=== PATIENT | male | born 1960 | race Caucasian/White ===

== ENCOUNTER 2018-01-09 00:57 | Observation (INO) | payer OTHER ==
[~2018-01-09] VITALS: Ht 188 cm; Wt 162.2 kg
[2018-01-09 01:24] LABS: BASOPHILS ABSOLUTE AUTO 0.01 K/mm3 (0.00-0.23); BASOPHILS PERCENT AUTO 0 % (0-2); EOSINOPHILS ABSOLUTE AUTO 0.17 K/mm3 (0.00-0.68); EOSINOPHILS PERCENT AUTO 2 % (0-6); Hematocrit 41.4 % (37.0-53.0); Hemoglobin 13.5 g/dL (13.5-17.5); IMMATURE GRAN ABSOLUTE AUTO 0.02 K/mm3 (0.00-0.10); IMMATURE GRAN PERCENT AUTO 0 % (0-1); LYMPHOCYTES ABSOLUTE AUTO 2.74 K/mm3 (0.84-5.20); LYMPHOCYTES PERCENT AUTO 33 % (21-46); MONOCYTES ABSOLUTE AUTO 0.48 K/mm3 (0.16-1.47); MONOCYTES PERCENT AUTO 6 % (4-13); Mean Corpuscular HGB 28.5 pg (26.0-34.0); Mean Corpuscular HGB Conc 32.6 g/dL (31.5-36.5); Mean Corpuscular Volume 87 fL (80-100); Mean Platelet Volume 9.5 fL (9.1-12.4); NEUTROPHILS PERCENT AUTO 59 % (41-73); Platelet Count 295 K/mm3 (150-400); RDW Coefficient Variation 14.3 % (11.7-14.2); RDW Standard Deviation 45.7 fL (35.1-46.3); Red Blood Cell Count 4.74 M/mm3 (4.30-5.90); White Blood Cell Count 8.22 K/mm3 (4.00-11.30)
[2018-01-09 01:44] LABS: Alanine Aminotransfer (ALT/SGP 33 U/L (12-78); Albumin, Blood 3.3 g/dL (3.4-5.0); Albumin/Globulin Ratio 0.8 (0.8-1.8); Alk Phos 71 U/L (50-136); Anion Gap 7 mmol/L (6-16); Aspartate Aminotrans (AST/SGOT 17 U/L (12-37); Bilirubin, Total 0.3 mg/dL (0.1-1.0); Blood Urea Nitrogen 23 mg/dL (8-24); Bun/Creatinine Ratio 21.9 (12.0-20.0); CO2, Blood 29 mmol/L (21-32); Calcium, Blood 8.7 mg/dL (8.5-10.1); Chloride, Blood 100 mmol/L (98-108); Creatinine, Blood 1.05 mg/dL (0.60-1.20); Globulin, Blood 4.3 g/dL (2.2-4.0); Glomerular Filtration Rate >60 (60-); Glucose, Blood 336 mg/dL (70-99); Sodium, Blood 136 mmol/L (136-145); Total Protein, Blood 7.6 g/dL (6.4-8.2); Troponin I <0.015 ng/mL (0.000-0.040)
[2018-01-09] MEDS ORDERED: AMLO10 PO (01:56)
[2018-01-09] MEDS ORDERED: SERT100 PO (01:56)
[2018-01-09] MEDS ORDERED: TRIA50 PO (01:56)
[2018-01-09] MEDS ORDERED: GLIP10 PO (01:57)
[2018-01-09] MEDS ORDERED: VALS80 PO (01:57)
[2018-01-09] MEDS ORDERED: METF500 PO (01:58)
[2018-01-09 10:17] LABS: CPK Creatine Kinase 107 U/L (39-308); Troponin I <0.015 ng/mL (0.000-0.040)
[2018-01-09 17:32] LABS: BASOPHILS ABSOLUTE AUTO 0.02 K/mm3 (0.00-0.23); BASOPHILS PERCENT AUTO 0 % (0-2); EOSINOPHILS ABSOLUTE AUTO 0.18 K/mm3 (0.00-0.68); EOSINOPHILS PERCENT AUTO 2 % (0-6); Hematocrit 44.3 % (37.0-53.0); Hemoglobin 14.6 g/dL (13.5-17.5); IMMATURE GRAN ABSOLUTE AUTO 0.01 K/mm3 (0.00-0.10); IMMATURE GRAN PERCENT AUTO 0 % (0-1); LYMPHOCYTES ABSOLUTE AUTO 2.59 K/mm3 (0.84-5.20); LYMPHOCYTES PERCENT AUTO 31 % (21-46); MONOCYTES ABSOLUTE AUTO 0.56 K/mm3 (0.16-1.47); MONOCYTES PERCENT AUTO 7 % (4-13); Mean Corpuscular HGB 28.5 pg (26.0-34.0); Mean Corpuscular Volume 86 fL (80-100); Mean Platelet Volume 9.4 fL (9.1-12.4); NEUTROPHILS ABSOLUTE AUTO 4.89 K/mm3 (1.96-9.15); NEUTROPHILS PERCENT AUTO 59 % (41-73); Platelet Count 326 K/mm3 (150-400); RDW Coefficient Variation 14.4 % (11.7-14.2); RDW Standard Deviation 45.3 fL (35.1-46.3); Red Blood Cell Count 5.13 M/mm3 (4.30-5.90); White Blood Cell Count 8.25 K/mm3 (4.00-11.30)
[2018-01-09 18:38] LABS: Alanine Aminotransfer (ALT/SGP 34 U/L (12-78); Albumin, Blood 3.5 g/dL (3.4-5.0); Albumin/Globulin Ratio 0.8 (0.8-1.8); Alk Phos 72 U/L (50-136); Anion Gap 11 mmol/L (6-16); Aspartate Aminotrans (AST/SGOT 25 U/L (12-37); Bilirubin, Total 0.8 mg/dL (0.1-1.0); Blood Urea Nitrogen 27 mg/dL (8-24); Bun/Creatinine Ratio 22.1 (12.0-20.0); CO2, Blood 25 mmol/L (21-32); Chloride, Blood 100 mmol/L (98-108); Creatinine, Blood 1.22 mg/dL (0.60-1.20); Globulin, Blood 4.6 g/dL (2.2-4.0); Glomerular Filtration Rate >60 (60-); Glucose, Blood 165 mg/dL (70-99); Potassium, Blood 3.8 mmol/L (3.5-5.5); Sodium, Blood 136 mmol/L (136-145); Total Protein, Blood 8.1 g/dL (6.4-8.2)
[2018-01-09 18:42] LABS: CPK Creatine Kinase 109 U/L (39-308); Troponin I <0.015 ng/mL (0.000-0.040)
[2018-01-11] MEDS ORDERED: ASPI81CH PO (18:28)
== END 2018-01-11 18:45 | disposition home or self-care (01) ==
LOC: ER 00:57 → MEDS 00:58 → ENPENDDIS 01-11 17:30 → MEDS 01-11 18:45
PROVIDERS: Emergency Medicine; Internal Medicine
DX: R07.9 Chest pain, unspecified (principal); I10 Essential (primary) hypertension; E11.65 Type 2 diabetes mellitus with hyperglycemia; Z79.84 Long term (current) use of oral hypoglycemic drugs; Z79.899 Other long term (current) drug therapy; Z79.82 Long term (current) use of aspirin
CPT/HCPCS: 36415; 71045; 78452; 80053; 82550; 82947; 83036; 83880; 84484; 85025; 85379; 93005; 93010; 93017; 96372; 96374; 96375; 96376; 99285; A9500; G0378; J0280; J1650; J1885; J2785; J3010

== ENCOUNTER 2023-02-01 01:37 | Day surgery (SDC) | payer OTHER ==
[~2023-02-01 01:37] MED LIST: AMLO10 PO; ASPI81CH PO; GLIP10 PO; METF500 PO; SERT100 PO; TRIA50 PO; VALS80 PO
== END 2023-02-01 22:49 | disposition home or self-care (01) ==
LOC: WOUND 01:37
DX: L89.322 Pressure ulcer of left buttock, stage 2 (principal); L89.312 Pressure ulcer of right buttock, stage 2; E11.622 Type 2 diabetes mellitus with other skin ulcer; S31.809D Unspecified open wound of unspecified buttock, subsequent encounter
CPT/HCPCS: A9270; G0463

== ENCOUNTER 2023-02-07 00:15 | Day surgery (SDC) | payer OTHER | END 2023-02-07 22:41 | disposition home or self-care (01) | LOC: WOUND 00:15 | DX: E11.622 Type 2 diabetes mellitus with other skin ulcer (principal); S31.809D Unspecified open wound of unspecified buttock, subsequent encounter; X58.XXXD Exposure to other specified factors, subsequent encounter | CPT/HCPCS: G0463 ==

== ENCOUNTER 2023-02-14 00:37 | Day surgery (SDC) | payer OTHER | END 2023-02-14 22:51 | disposition home or self-care (01) | LOC: WOUND 00:37 | DX: L89.323 Pressure ulcer of left buttock, stage 3 (principal); E11.65 Type 2 diabetes mellitus with hyperglycemia | CPT/HCPCS: A9270; G0463 ==

== ENCOUNTER 2023-02-28 00:47 | Day surgery (SDC) | payer OTHER | END 2023-02-28 22:40 | disposition home or self-care (01) | LOC: WOUND 00:47 | DX: L89.322 Pressure ulcer of left buttock, stage 2 (principal); E11.65 Type 2 diabetes mellitus with hyperglycemia; E11.622 Type 2 diabetes mellitus with other skin ulcer | CPT/HCPCS: A9270; G0463 ==

== ENCOUNTER 2023-03-07 00:13 | Day surgery (SDC) | payer OTHER | END 2023-03-07 22:58 | disposition home or self-care (01) | LOC: WOUND 00:13 | DX: L89.322 Pressure ulcer of left buttock, stage 2 (principal); L89.312 Pressure ulcer of right buttock, stage 2; E11.622 Type 2 diabetes mellitus with other skin ulcer; E11.65 Type 2 diabetes mellitus with hyperglycemia | CPT/HCPCS: G0463 ==

== ENCOUNTER → 2023-08-19 | Outpatient (CLI) | payer OTHER ==
[2023-08-19 14:53] LABS: BASOPHILS ABSOLUTE AUTO 0.01 K/mm3 (0.00-0.23); BASOPHILS PERCENT AUTO 0 % (0-2); EOSINOPHILS ABSOLUTE AUTO 0.09 K/mm3 (0.00-0.68); EOSINOPHILS PERCENT AUTO 1 % (0-6); Hematocrit 41.4 % (37.0-53.0); Hemoglobin 13.7 g/dL (13.5-17.5); IMMATURE GRAN ABSOLUTE AUTO 0.02 K/mm3 (0.00-0.10); IMMATURE GRAN PERCENT AUTO 0 % (0-1); LYMPHOCYTES ABSOLUTE AUTO 1.99 K/mm3 (0.84-5.20); LYMPHOCYTES PERCENT AUTO 27 % (21-46); MONOCYTES ABSOLUTE AUTO 0.38 K/mm3 (0.16-1.47); MONOCYTES PERCENT AUTO 5 % (4-13); Mean Corpuscular HGB Conc 33.1 g/dL (31.5-36.5); Mean Corpuscular Volume 88 fL (80-100); Mean Platelet Volume 10.2 fL (9.1-12.4); NEUTROPHILS ABSOLUTE AUTO 4.83 K/mm3 (1.96-9.15); NEUTROPHILS PERCENT AUTO 66 % (41-73); Platelet Count 304 K/mm3 (150-400); RDW Coefficient Variation 14.1 % (11.7-14.2); RDW Standard Deviation 45.3 fL (35.1-46.3); Red Blood Cell Count 4.72 M/mm3 (4.30-5.90); White Blood Cell Count 7.32 K/mm3 (4.00-11.30)
[2023-08-19 15:01] LABS: Alanine Aminotransfer (ALT/SGP 42 U/L (12-78); Albumin, Blood 3.4 g/dL (3.4-5.0); Albumin/Globulin Ratio 0.8 (0.8-1.8); Alk Phos 81 U/L (50-136); Anion Gap 3 mmol/L (6-16); Aspartate Aminotrans (AST/SGOT 28 U/L (12-37); Blood Urea Nitrogen 16 mg/dL (8-24); Bun/Creatinine Ratio 14.5 (12.0-20.0); CHOL/HDL RATIO 5.5; CO2, Blood 29 mmol/L (21-32); Calcium, Blood 9.7 mg/dL (8.5-10.1); Chloride, Blood 108 mmol/L (98-108); Cholesterol 170 mg/dL (50-200); Glomerular Filtration Rate 75 (60-); Glucose, Blood 165 mg/dL (70-99); HDL Cholesterol 31 mg/dL (>39); LDL/HDL RATIO 3.5; Low Density Lipoprotein Chol 107 mg/dL (0-110); Magnesium, Blood 1.7 mg/dL (1.6-2.4); Potassium, Blood 4.1 mmol/L (3.5-5.5); Sodium, Blood 140 mmol/L (136-145); Thyroid Stimulating Hormone 0.828 uIU/mL (0.360-4.800); Total Protein, Blood 7.4 g/dL (6.4-8.2); Triglycerides 158 mg/dL (30-160); Very Low Density Lipoprot Chol 31 mg/dL (6-32)
== END | disposition home or self-care (01) ==
LOC: LAB SHORT 11:08 → LAB 11:08
PROVIDERS: Family Medicine
DX: Z13.6 Encounter for screening for cardiovascular disorders (principal); I10 Essential (primary) hypertension
CPT/HCPCS: 80053; 80061; 83735; 84443; 85025

== ENCOUNTER 2025-05-28 12:29 | Day surgery (SDC) | payer OTHER ==
[2025-05-28] MEDS ORDERED: Lidocaine HCl 4% Topical Soln 5 MLUDC ONE (13:56)
[2025-05-28] MEDS ORDERED: Lidocaine HCl 4% Cream 5 GM ONE (13:56)
== END 2025-05-28 23:00 | disposition home or self-care (01) ==
LOC: WOUND 12:29
DX: L89.623 Pressure ulcer of left heel, stage 3 (principal); E11.622 Type 2 diabetes mellitus with other skin ulcer; I10 Essential (primary) hypertension
CPT/HCPCS: A6213; A9270; G0463

== ENCOUNTER 2025-06-05 02:05 | Day surgery (SDC) | payer OTHER ==
[2025-06-05] MEDS ORDERED: Lidocaine HCl 4% Cream 5 GM ONE (14:51)
== END 2025-06-05 23:00 | disposition home or self-care (01) ==
LOC: WOUND 02:05
DX: L89.623 Pressure ulcer of left heel, stage 3 (principal); I10 Essential (primary) hypertension
CPT/HCPCS: A6213; A9270; G0463

== ENCOUNTER 2025-06-13 03:43 | Day surgery (SDC) | payer OTHER ==
[2025-06-13] MEDS ORDERED: Lidocaine HCl 4% Cream 5 GM ONE (11:01)
== END 2025-06-13 23:00 | disposition home or self-care (01) ==
LOC: WOUND 03:43
DX: L89.623 Pressure ulcer of left heel, stage 3 (principal); E11.622 Type 2 diabetes mellitus with other skin ulcer; E11.42 Type 2 diabetes mellitus with diabetic polyneuropathy; I10 Essential (primary) hypertension
CPT/HCPCS: A6213; A9270

== ENCOUNTER 2025-06-20 01:48 | Day surgery (SDC) | payer OTHER ==
[2025-06-20] MEDS ORDERED: Lidocaine HCl 4% Cream 5 GM ONE (10:02)
== END 2025-06-20 23:00 | disposition home or self-care (01) ==
LOC: WOUND 01:48
DX: L89.623 Pressure ulcer of left heel, stage 3 (principal); I10 Essential (primary) hypertension
CPT/HCPCS: A6213; A9270

== ENCOUNTER 2025-07-01 08:13 | Emergency (ER) | payer OTHER ==
[~2025-07-01] VITALS: Ht 188 cm; Wt 163.3 kg
[2025-07-01] MEDS ORDERED: HYDROcodone 5-APAP 325 TAB PO ONE (09:05)
[2025-07-01] MEDS ORDERED: CYCL10 PO (09:38)
[2025-07-01 09:47] VITALS: BP 178/98
== END 2025-07-01 09:48 | disposition home or self-care (01) ==
LOC: ER 08:13
DX: S76.012A Strain of muscle, fascia and tendon of left hip, initial encounter (principal); S76.912A Strain of unspecified muscles, fascia and tendons at thigh level, left thigh, initial encounter; I10 Essential (primary) hypertension; E11.9 Type 2 diabetes mellitus without complications; X50.0XXA Overexertion from strenuous movement or load, initial encounter; Z79.899 Other long term (current) drug therapy; Z79.82 Long term (current) use of aspirin
CPT/HCPCS: 73552; 99283-25; A9270

== ENCOUNTER 2025-07-11 03:22 | Day surgery (SDC) | payer OTHER ==
[~2025-07-11 03:22] MED LIST changes: +CYCL10 PO
[2025-07-11] MEDS ORDERED: Lidocaine HCl 4% Cream 5 GM ONE (10:58)
== END 2025-07-11 23:08 | disposition home or self-care (01) ==
LOC: WOUND 03:22
DX: L89.623 Pressure ulcer of left heel, stage 3 (principal); E11.9 Type 2 diabetes mellitus without complications; I10 Essential (primary) hypertension
CPT/HCPCS: A6213; A9270

== ENCOUNTER 2025-08-08 02:20 | Day surgery (SDC) | payer OTHER ==
[2025-08-08] MEDS ORDERED: Lidocaine HCl 4% Cream 5 GM ONE (09:22)
== END 2025-08-08 23:00 | disposition home or self-care (01) ==
LOC: WOUND 02:20
DX: L89.623 Pressure ulcer of left heel, stage 3 (principal); I10 Essential (primary) hypertension; E11.9 Type 2 diabetes mellitus without complications
CPT/HCPCS: A6213; A9270

== ENCOUNTER 2025-09-05 00:16 | Day surgery (SDC) | payer OTHER ==
[2025-09-05] MEDS ORDERED: Lidocaine HCl 4% Cream 5 GM ONE (07:59)
== END 2025-09-05 23:00 | disposition home or self-care (01) ==
LOC: WOUND 00:16
DX: L89.623 Pressure ulcer of left heel, stage 3 (principal); E11.622 Type 2 diabetes mellitus with other skin ulcer; I10 Essential (primary) hypertension
CPT/HCPCS: A9270; G0463